=== PATIENT | female | born 1975 | race Caucasian/White ===

== ENCOUNTER 2019-07-14 18:46 | Emergency (ER) | payer MEDICAID ==
[~2019-07-14] VITALS: Ht 157.5 cm; Wt 175.0 kg
[2019-07-14 19:36] VITALS: BP 107/53
== END 2019-07-15 00:40 | disposition left against medical advice (07) ==
LOC: ER 18:46
DX: R50.9 Fever, unspecified (principal); R05 Cough; Z53.21 Procedure and treatment not carried out due to patient leaving prior to being seen by health care provider